=== PATIENT | male | born 1995 | race Two or more races ===

== ENCOUNTER 2018-11-25 23:51 | Emergency (ER) | payer SELFPAY ==
[~2018-11-25] VITALS: Ht 182.9 cm; Wt 77.3 kg
[2018-11-26 00:25] VITALS: BP 129/78
[2018-11-26 00:48] LABS: AMPHET/METH SCREEN,URINE POSITIVE (NEGATIVE); BARBITURATE SCREEN, URINE NEGATIVE (NEGATIVE); BENZODIAZEPINES SCREEN,URINE NEGATIVE (NEGATIVE); CANNABINOID SCREEN,URINE NEGATIVE (NEGATIVE); COCAINE SCREEN,URINE NEGATIVE (NEGATIVE); METHADONE SCREEN, URINE NEGATIVE (NEGATIVE); OPIATE SCREEN,URINE NEGATIVE (NEGATIVE); PHENCYCLIDINE SCREEN,URINE NEGATIVE (NEGATIVE)
[2018-11-26 01:07] LABS: BASOPHILS % (AUTO) 0.4 % (0.0-2.0); EOSINOPHILS % (AUTO) 0.9 % (1.0-6.0); HEMATOCRIT 46.9 % (41-53); HEMOGLOBIN 16.3 g/dL (13.5-17.5); LYMPHOCYTES # (AUTO) 2.2 K/uL (1.0-4.8); LYMPHOCYTES % (AUTO) 29.9 % (22.0-44.0); MEAN CORPUSCULAR HEMOGLOBIN 33.7 pg (26.0-34.0); MEAN CORPUSCULAR HGB CONC 34.7 G/dL (31.0-37.0); MEAN CORPUSCULAR VOLUME 97 fL (80-100); MONOCYTES # (AUTO) 0.7 K/uL (0.1-1.0); MONOCYTES % (AUTO) 9.3 % (2.0-9.0); NEUTROPHILS # (AUTO) 4.4 K/uL (1.8-7.7); NEUTROPHILS % (AUTO) 59.5 % (40.0-70.0); PLATELET COUNT (AUTO) 243 K/uL (150-450); RED BLOOD CELL COUNT(AUTO) 4.85 MIL/uL (4.50-5.90); RED CELL DISTRIBUTION WIDTH 13.6 % (11.5-14.5)
[2018-11-26 01:14] LABS: ANION GAP 8 mmol/L (8-16); CALCIUM, TOTAL 9.9 mg/dL (8.8-10.5); CARBON DIOXIDE 31 mmol/L (22-29); CHLORIDE 101 mmol/L (98-107); CREATININE 1.32 mg/dL (0.60-1.30); GLOMERULAR FILTR. RATE CALC > 60 mL/min (>60); GLUCOSE,RANDOM 91 mg/dL (70-110); POTASSIUM 4.2 mmol/L (3.5-5.1); SODIUM SERUM 140 mmol/L (136-145); UREA NITROGEN, BLOOD 17 mg/dL (7-18)
[2018-11-26 01:21] LABS: ALANINE AMINOTRANSFERASE 120 U/L (12-78); ALBUMIN 4.4 g/dL (3.4-5.0); ALKALINE PHOSPHATASE 84 U/L (46-116); ASPARTATE AMINOTRANSFERASE 57 U/L (15-37); BILIRUBIN,TOTAL 1.5 mg/dL (0.1-1.0); TOTAL PROTEIN, SERUM 8.5 g/dL (6.4-8.2)
[2018-11-26] MEDS: LORazepam 1 MG TABLET PO ONE (01:42)
== END 2018-11-26 02:27 | disposition home or self-care (01) ==
LOC: EMS 23:54
DX: G47.00 Insomnia, unspecified (principal); F15.10 Other stimulant abuse, uncomplicated; F12.90 Cannabis use, unspecified, uncomplicated
CPT/HCPCS: 36415; 80053; 80307; 85025; 99283; G0480

== ENCOUNTER 2020-10-05 17:36 | Emergency (ER) | payer OTHER ==
[~2020-10-05] VITALS: Ht 182.9 cm; Wt 95.5 kg
[2020-10-05 17:38] VITALS: BP 140/69
[2020-10-05] MEDS ORDERED: LIDOCAINE 1% 10 ML VIAL ID ONE (18:00)
[2020-10-05] MEDS ORDERED: POVIDONE-IODINE 10% 15 ML SOLUTION UD TP ONE (18:00)
[2020-10-05] MEDS ORDERED: ACETAMINOPHEN 500 MG TABLET PO ONE (18:45)
== END 2020-10-05 19:01 | disposition home or self-care (01) ==
LOC: EMS 17:36
DX: L02.414 Cutaneous abscess of left upper limb (principal); F12.90 Cannabis use, unspecified, uncomplicated; F20.9 Schizophrenia, unspecified
CPT/HCPCS: 10060; 99282; J3490

== ENCOUNTER 2021-05-23 19:54 | Emergency (ER) | payer OTHER ==
[~2021-05-23] VITALS: Ht 182.9 cm; Wt 96.0 kg
[2021-05-23 20:39] VITALS: BP 118/80
== END 2021-05-23 20:50 | disposition home or self-care (01) ==
LOC: EMS 19:56
DX: R07.89 Other chest pain (principal); F12.90 Cannabis use, unspecified, uncomplicated; F17.210 Nicotine dependence, cigarettes, uncomplicated
CPT/HCPCS: 99283; Z7502

== ENCOUNTER 2022-01-23 12:48 | Emergency (ER) | payer OTHER | END 2022-01-23 16:24 | LOC: EMS 12:57 | DX: I46.9 Cardiac arrest, cause unspecified (principal); F20.9 Schizophrenia, unspecified; F17.210 Nicotine dependence, cigarettes, uncomplicated; F12.90 Cannabis use, unspecified, uncomplicated; Z90.49 Acquired absence of other specified parts of digestive tract; Z98.890 Other specified postprocedural states | CPT/HCPCS: 31500; 92950; 99285; Z7502 ==